=== PATIENT | female | born 1975 | race Caucasian/White ===

== ENCOUNTER → 2021-05-13 | Day surgery (SDC) | payer OTHER ==
[~2021-05-13] VITALS: Ht 170.2 cm; Wt 117.5 kg
[~2021-05-13] MED LIST: AMOXICILLIN500 MG PO; NAPROXEN500 MG PO; PRILOSEC20 MG PO; RELPAX40 MG PO; SYNTHROID75 MCG PO
[2021-05-13 10:47] LABS: HCG (URINE) SCREEN NEGATIVE (NEGATIVE)
[2021-05-13 11:35] LABS: HCT 39.5 % (37.0-47.0); HGB 12.9 g/dl (12.5-16.0); MCH 29.6 pg (25.0-31.0); MCHC 32.7 g/dL (32.0-36.0); MCV 90.6 fL (78.0-100.0); MPV 11.9 fL (6.0-9.5); RBC 4.36 M/uL (4.20-5.40); RDW 13.5 % (11.5-14.0); WBC 7.3 K/uL (4.0-10.5)
== END | disposition home or self-care (01) ==
LOC: FAS 10:01
PROVIDERS: Legal Medicine
DX: M19.011 Primary osteoarthritis, right shoulder (principal); M75.101 Unspecified rotator cuff tear or rupture of right shoulder, not specified as traumatic; M75.41 Impingement syndrome of right shoulder; M67.431 Ganglion, right wrist; K21.9 Gastro-esophageal reflux disease without esophagitis; E03.9 Hypothyroidism, unspecified; Z79.2 Long term (current) use of antibiotics; Z79.899 Other long term (current) drug therapy
CPT/HCPCS: 36415; 84703; 93005; C1713; J0171; J0690; J1170; J2250; J2270; J2405; J2704; J2795; J3010; J7120

== ENCOUNTER → 2022-01-27 | Day surgery (SDC) | payer OTHER ==
[~2022-01-27] VITALS: Ht 170.2 cm; Wt 101.6 kg
[2022-01-27 06:23] LABS: HCG (URINE) SCREEN NEGATIVE (NEGATIVE)
[2022-01-27 06:40] LABS: HCT 40.3 % (37.0-47.0); HGB 13.3 g/dl (12.5-16.0); MCH 30.3 pg (25.0-31.0); MCV 91.8 fL (78.0-100.0); MPV 12.5 fL (6.0-9.5); RBC 4.39 M/uL (4.20-5.40); RDW 14.4 % (11.5-14.0); WBC 6.9 K/uL (4.0-10.5)
== END | disposition home or self-care (01) ==
LOC: FAS 06:02
PROVIDERS: Legal Medicine
DX: M75.01 Adhesive capsulitis of right shoulder (principal); M75.101 Unspecified rotator cuff tear or rupture of right shoulder, not specified as traumatic; Z98.890 Other specified postprocedural states
CPT/HCPCS: 36415; 84703; 93005; J1885; J2250; J2274; J2405; J2704; J2795; J3010; J7120